=== PATIENT | male | born 1970 | race Caucasian/White ===

== ENCOUNTER 2020-11-14 13:46 | Emergency (ER) | payer MEDICAID ==
[~2020-11-14] VITALS: Ht 170.2 cm; Wt 45.0 kg
[2020-11-14 16:50] VITALS: BP 118/85
== END 2020-11-14 16:51 | disposition home or self-care (01) ==
LOC: ER 13:47
DX: S20.211A Contusion of right front wall of thorax, initial encounter (principal); W01.0XXA Fall on same level from slipping, tripping and stumbling without subsequent striking against object, initial encounter; Y93.89 Activity, other specified; Y92.89 Other specified places as the place of occurrence of the external cause; Y99.8 Other external cause status
CPT/HCPCS: 71045; 99284